=== PATIENT | female | born 1950 | race Caucasian/White ===

== ENCOUNTER 2016-05-08 13:16 | Emergency (ER) | payer MEDICARE ==
[~2016-05-08 13:16] MED LIST: ASA CHILDREN'S81 MG PO; BACTRIM DS DPS1 TAB PO; FLEXERIL DPS5 MG PO; GLUCAGON1 MG/ML SQ; GLUCOPHAGE-DPS500 MG PO; GLUTOSE 1537.5 GM PO; HUMALOG, N100 UNITS/ SQ; HYDROCODONE 10M10 MG PO; LASIX DPS40 MG PO; LEVEMIR100 UNIT/1 SQ; LIPITOR DPS40 MG PO; LOPRESSOR DPS12.5 MG PO; MAALOX DPS30 ML PO; MONTELUKAST SOD10 MG PO; NEURONTIN DPS100 MG PO; PERCOCET 5 DPS1 TAB PO; PHENERGAN W/COD30 ML PO; PLAVIX75 MG PO; PROCARDIA XL DP30 MG PO; PROTONIX40 MG PO; PROVENTIL HFA6.7 GM IH; PROVENTIL2.5 MG/3 M IH; SURFAK DPS240 MG PO; TYLENOL DPS325 MG PO; VASOTEC DPS10 MG PO; VITAMIN D35000 UNI1 PO; ZOLOFT DPS100 MG PO
--- NOTE | 2016-05-13 09:52 | ER ---
ADMIT: 05/08/2016 RM/LOC: ER [facility] MR#: [id number] [facility] [address] [place], [place] [id number] ANAI BAJWA [address] [place] [address] Emergency Room Report SEX: F AGE: 65 : 1950 DATE: 05/08/2016 ADDENDUM: A 65-year-old female coming in with twinges of chest pain. CBC, chemistry, and troponin all negative. EKG negative as well as the chest x-ray. I spoke with Dr. Garcia. They will see her next week. NICOLETTE continued the same medicines which they have been doing. She will be in the office by [address] Larkin, on next 05/16/2016. CONDITION ON DISCHARGE: Good. Rad Hernandez MD/ karina JOB #: [id number] CC: Rad Hernandez MD, Attending Physician Lars Garcia MD, Family Physician
== END 2016-05-08 15:30 | disposition home or self-care (01) ==
LOC: ER 13:16
DX: I25.119 Atherosclerotic heart disease of native coronary artery with unspecified angina pectoris (principal); E11.9 Type 2 diabetes mellitus without complications; I10 Essential (primary) hypertension; E78.5 Hyperlipidemia, unspecified; E78.00 Pure hypercholesterolemia, unspecified; K21.9 Gastro-esophageal reflux disease without esophagitis; J44.9 Chronic obstructive pulmonary disease, unspecified; Z88.0 Allergy status to penicillin